=== PATIENT | male | born 1960 | race Caucasian/White ===

== ENCOUNTER 2017-04-24 10:16 | Emergency (ER) | payer BC ==
[2017-04-24 10:45] VITALS: BP 135/85
[2017-04-24] MEDS ORDERED: IBUPROFEN 600 MG TABLET PO ONE (13:23)
[2017-04-24] MEDS ORDERED: IBUPROFEN 600 MG TABLET ONE (13:31)
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
== END 2017-04-24 13:34 | disposition home or self-care (01) ==
LOC: ER 10:16
DX: S56.912A Strain of unspecified muscles, fascia and tendons at forearm level, left arm, initial encounter (principal); X58.XXXA Exposure to other specified factors, initial encounter; Y93.89 Activity, other specified; Y92.488 Other paved roadways as the place of occurrence of the external cause; Y99.8 Other external cause status

== ENCOUNTER 2017-05-19 10:41 | Observation (INO) | payer BC ==
[2017-05-19] MEDS ORDERED: ASPIRIN 81 MG TAB.CHEW ONE (10:48)
[2017-05-19] MEDS ORDERED: ASPIRIN 81 MG TAB.CHEW PO ONE (10:49)
[2017-05-19] MEDS ORDERED: NITROGLYCERIN 0.4 MG/TAB BTL SL ONE ×2 (10:54→11:02)
--- NOTE | 2017-05-19 11:01 | ERNOTE ---
Chest Pain/Cardiac HPI Chief Complaint: Chest Pain Time Seen by Provider: 05/19/17 10:42 Source: patient Exam Limitations: no limitations Immunizations: IMMUNIZATION HX Immunizations Up to Date Yes History of Influenza Vaccine No Hx Pneumococcal Vaccination Yes Allergies/Adverse Reactions: Allergies No Known Allergies Allergy (Verified 05/19/17 12:28) Home Medications: HOME MEDICATIONS Atorvastatin Calcium [Lipitor] 20 mg PO DAILY 05/19/17 [Last Taken 05/18/17 21: 00] Omeprazole 20 mg PO DAILY 05/19/17 [Last Taken 05/18/17 21:00] Narrative: Patient noticed left sided chest pain when he woke up this morning, the pain has been getting worse so he decided to come to the ER to be evaluated. Two nights ago he woke up with pain in the middle of the night, also had pain last night prior to going to bed but none during the night, Date (Duration): 05/19/17 Time (Timing): 08:00 Timing: constant, getting worse Severity/Quality: severe, pressure, sharp Location: left chest Chest Pain Radiation: arms Activities at Onset: none Modifying Factors - Improves: Present: nothing. Absent: exercise Modifying Factors - Worsens: Present: nothing. Absent: nitroglycerin Nitro Today/Relief: 0.4 mg x 1, provided at home Aspirin Treatment Today: no aspirin today Associated Symptoms: Present: dizziness. Absent: denies symptoms, headache, shortness of breath, fever/chills Prior Chest Pain/Cardiac Workup: Reports: prior chest pain. Denies: no prior cardiac workup, heart attack Prior Treatment: Denies: recently seen, currently on antibiotics Review of Systems - Review of Systems Constitutional: Absent: recent illness, fever ENT: Absent: nasal drainage, sore throat Respiratory: Absent: shortness of breath, cough Cardiology: Present: See HPI, chest pain Gastrointestinal/Abdominal: Absent: nausea, vomiting, abdominal pain Genitourinary: Present: no symptoms reported Musculoskeletal: Present: no symptoms reported Skin: Present: no symptoms reported Neurological: Present: headache - slight - Patient's Past Medical History Patient History - Medical: GERD Patient History - Cardiac/Respiratory: Hyperlipidemia Patient History - Cancer: No Hx of Cancer Patient History - Surgical Procedures: Other Patient History - Other: None - Family History Mother Family History - Medical: , No pertinent hx Family History - Cardiac/Respiratory: History Unknown Family History - Cancer: Cervical Father Family History - Medical: History Unknown Family History - Cardiac/Respiratory: History Unknown Family History - Cancer: History Unknown - Social History Living Situations: home Psych History: No pertinent hx Smoking Status: Light tobacco smoker Alcohol Use: none Drug Use: none - Immunizations Immunizations Up to Date: Yes Hx Pneumococcal Vaccination: Yes History of Influenza Vaccine: No Physical Exam - Physical Exam General Appearance: Present: wd/wn, alert, no apparent distress Head Exam: Present: normal inspection Ears, Nose, Throat: Present: normal ENT inspection Respiratory: Present: no respiratory distress, normal breath sounds, no accessory muscle use, chest nontender, lungs clear Cardiovascular/Chest: Present: regular rate, rhythm, no murmur Gastrointestinal/Abdominal: Present: nontender, nondistended, soft Extremity Exam: Present: no edema Neurological Exam: Present: alert, oriented, normal mood/affect Skin Exam: Present: normal color, warm/dry ED Progress - Results and Orders Patient's Lab Results:: I have reviewed the patient's lab results. - Vital Signs Patient's Vital Signs:: I have reviewed the patient's vital signs. Vital Signs: Vital Signs 05/19/17 10:43 Temperature 36.8 C Pulse Rate 60 Respiratory 11 L Rate Blood Pressure 146/83 O2 Sat by Pulse 97 Oximetry - EKG EKG: NSR - sinusbradycardia, nonspecific ST T wave changes, unchanged from 2013 EKG read: Interp. by me - X-Ray X-Ray #1 X-Ray: chest - no acute changes Interpretation: Reviewed by me - Progress/Reassessment Chief Complaint: Chest Pain Progress Note-Subjective: 05/19/17 11:04 pain better after 1st nitro here 05/19/17 11:50 pain resolved. discussed results with patient and family, offered admission for chest pain, patient agreed 05/19/17 11:51 discussed with lino Schuster to admit for chest pain Departure Clinical Impression: Chest pain Qualifiers: Chest pain type: precordial pain Qualified Code(s): R07.2 - Precordial pain - Departure Disposition: [facility] Condition: Good
[2017-05-19 11:11] LABS: Hematocrit 44.2 % (42.0-52.0); Hemoglobin 15.3 gm/dL (13.5-18.0); Mean Cell Volume 79.9 fl (78-100); Mean Corpuscular Hemoglobin 27.7 pg (27-31); Mean Corpuscular Hgb Conc 34.6 g/dl (32-36); Mean Platelet Volume 9.8 fl (6.0-9.5); Neutrophil # 3.6 K/mm3 (1.3-6.0); Neutrophil % 67.8 % (42-75.0); Platelet Count 222 K/mm3 (150-450); Red Blood Count 5.53 M/mm3 (4.7-6.0); Red Cell Distribution Width 12.2 % (11.5-14.0); White Blood Count 5.4 K/mm3 (4.0-10.5)
[2017-05-19 11:15] LABS: Partial Thrombolplastin Time 26.5 Seconds (24-32)
[2017-05-19 11:22] LABS: ALT 39 U/L (19-67); AST 21 U/L (0-48); Albumin * 3.4 gm/dl (3.4-5.0); Alkaline Phosphatase * 111 U/L (50-170); Anion Gap 12.7 mmol/L (6.8-13.8); BUN/Creatinine Ratio 12.5 (9.0-21.6); Bilirubin, Total 0.4 mg/dL (0.0-1.1); Blood Urea Nitrogen 13 mg/dL (6-23); Ca. Corrected For Albumin 8.9 mg/dL (8.4-10.2); Calcium * 8.7 mg/dL (7.9-10.9); Carbon Dioxide 26.2 mmol/L (24-32.6); Chloride 103 mmol/L (97-106); Glucose * 106 mg/dL (70-110); Potassium 3.9 mmol/L (3.4-4.6); Sodium 138 mmol/L (132-142)
[2017-05-19 11:23] LABS: Troponin I Less than 0.017 ng/ml (0.00-0.10)
--- NOTE | 2017-05-19 14:48 | HP ---
Chief Complaint - Chief Complaint Date of Service: 05/19/17 Time of Service: 14:38 Chief Complaint: Chest Pain History of Present Illness: Fernando is a 57 yo male that presented to the [facility] ER with chest pain ( sharp), left arm weakness, and left jaw tingling. He reports he had a little chest pain before going to bed last night but did not think much about it. When he awoke this morning he had sharp left anterior chest wall pain that would not improve. He reportedly took two of his significant others nitro and the pain improved. He has known hyperlipidemia and had a stress test 5 years ago that he reports was normal. He reports currently has a little chest pain but nothing significant. Reports no other symptoms currently. Denies change in diet, activity, or medication. - Patient's Past Medical History Patient History - Medical: GERD Patient History - Cardiac/Respiratory: Hyperlipidemia Patient History - Cancer: No Hx of Cancer Patient History - Surgical Procedures: Other Patient History - Other: None - Family History Mother Family History - Medical: , No pertinent hx Family History - Cardiac/Respiratory: History Unknown Family History - Cancer: Cervical Father Family History - Medical: History Unknown Family History - Cardiac/Respiratory: History Unknown Family History - Cancer: History Unknown - Social History Living Situations: spouse Psych History: No pertinent hx Smoking Status: Never smoker Have you smoked in the past 12 months: No Do you dip or chew tobacco: No Patient requests Smoking Cessation Consult: No Initiate information on Smoking Cessation: No Alcohol Use: none Drug Use: none - Immunizations Immunizations Up to Date: Yes Hx Pneumococcal Vaccination: Yes History of Influenza Vaccine: No Review Of Systems (GEN) - Review of Systems Generalized/Overall Review: Present: Weakness. Absent: Chills, Fever EENTM: Present: No Symptoms Reported Respiratory: Present: No Symptoms Reported Cardiac: Present: Chest Pain. Absent: Edema, Palpitations Abdominal: Present: No Symptoms Reported Genitourinary: Present: No Symptoms Reported Musculoskeletal: Present: No Symptoms Reported Neurological: Present: No Symptoms Reported Skin: Present: No Symptoms Reported Endocrine: Present: No Symptoms Reported Immunizations: IMMUNIZATION HX Immunizations Up to Date Yes History of Influenza Vaccine No Hx Pneumococcal Vaccination Yes Allergies/Adverse Reactions: Allergies Allergy/AdvReac Type Severity Reaction Status Date / Time No Known Allergies Allergy Verified 05/19/17 12:28 Home Medications: HOME MEDICATIONS Atorvastatin Calcium [Lipitor] 20 mg PO DAILY 05/19/17 [Last Taken 05/18/17 21: 00] Omeprazole 20 mg PO DAILY 05/19/17 [Last Taken 05/18/17 21:00] Exam - Exam Vital Signs: Vital Signs - Last Taken Temp 36.2 C L 05/19/17 12:12 Pulse 53 L 05/19/17 12:12 Resp 12 05/19/17 12:12 BP 101/70 05/19/17 12:12 Pulse Ox 96 05/19/17 12:12 Constitutional: Present: Alert, Oriented x3, Cooperative ENT Exam: Present: hearing grossly normal Eye Exam: bilateral eye: normal inspection Respiratory: Present: lungs clear, normal breath sounds Cardiovascular/Chest: Present: regular rate, rhythm, no murmur Peripheral Pulses: dorsalis-pedis (R): 2+, dorsalis-pedis (L): 2+ Abdomen: Present: Normal bowel sounds, soft, nontender, nondistended Extremity: Present: normal inspection Skin Exam: Present: normal color, warm/dry, no cyanosis Lymphatic: Present: no adenopathy Neurologic: Present: normal mood/affect, oriented x 3 Appearance: Present: appropriate appearance, appropriate insight Eye contact: Present: cooperative, good eye contact, normal speech Thoughts: Present: normal thought pattern, no apparent hallucination Diagnostic Studies: Laboratory Results WBC 5.4 K/mm3 (4.0-10.5) 05/19/17 11:00 RBC 5.53 M/mm3 (4.7-6.0) 05/19/17 11:00 Hgb 15.3 gm/dL (13.5-18.0) 05/19/17 11:00 Hct 44.2 % (42.0-52.0) 05/19/17 11:00 MCV 79.9 fl (78-100) 05/19/17 11:00 MCH 27.7 pg (27-31) 05/19/17 11:00 MCHC 34.6 g/dl (32-36) 05/19/17 11:00 RDW 12.2 % (11.5-14.0) 05/19/17 11:00 Plt Count 222 K/mm3 (150-450) 05/19/17 11:00 MPV 9.8 fl (6.0-9.5) H 05/19/17 11:00 Immature Gran % (Auto) 0.40 % (0.001-0.429) 05/19/17 11:00 Immature Gran # (Auto) 0.02 K/mm3 (0.000-0.0310) 05/19/17 11:00 Neutrophils % 67.8 % (42-75.0) 05/19/17 11:00 Lymphocytes % 19.3 % (20-51) L 05/19/17 11:00 Monocytes % 8.8 % (0.0-9) 05/19/17 11:00 Eosinophils % 2.8 % (0.0-3.0) 05/19/17 11:00 Basophils % 0.9 % (0.0-1.0) 05/19/17 11:00 Nucleated RBC % 0.0 k/mm3 (0-1) 05/19/17 11:00 Neutrophils # 3.6 K/mm3 (1.3-6.0) 05/19/17 11:00 Lymphocytes # 1.0 k/mm3 (1.5-3.5) L 05/19/17 11:00 Monocytes # 0.5 k/mm3 (0.0-1.0) 05/19/17 11:00 Eosinophils # 0.2 k/mm3 (0.0-0.7) 05/19/17 11:00 Absolute Basophils 0.1 k/mm3 (0.0-0.1) 05/19/17 11:00 PT 10.0 Seconds (9.0-11.0) 05/19/17 11:00 INR (Anticoag Therapy) 1.00 INR (0.90-1.10) 05/19/17 11:00 PTT (Chery) 26.5 Seconds (24-32) 05/19/17 11:00 Sodium 138 mmol/L (132-142) 05/19/17 11:00 Plasma Sodium 138 mmol/L (130-142) 05/19/17 11:00 Potassium 3.9 mmol/L (3.4-4.6) 05/19/17 11:00 Chloride 103 mmol/L (97-106) 05/19/17 11:00 Carbon Dioxide 26.2 mmol/L (24-32.6) 05/19/17 11:00 Anion Gap 12.7 mmol/L (6.8-13.8) 05/19/17 11:00 BUN 13 mg/dL (6-23) 05/19/17 11:00 Creatinine 1.04 mg/dL (0.4-1.4) 05/19/17 11:00 Est GFR (Non-Af Amer) 79 mL/min (60-130) 05/19/17 11:00 BUN/Creatinine Ratio 12.5 (9.0-21.6) 05/19/17 11:00 Random Glucose 106 mg/dL (70-110) 05/19/17 11:00 Calcium 8.7 mg/dL (7.9-10.9) 05/19/17 11:00 Calcium Adj for Albumin 8.9 mg/dL (8.4-10.2) 05/19/17 11:00 Total Bilirubin 0.4 mg/dL (0.0-1.1) 05/19/17 11:00 AST 21 U/L (0-48) 05/19/17 11:00 ALT 39 U/L (19-67) 05/19/17 11:00 Alkaline Phosphatase 111 U/L (50-170) 05/19/17 11:00 Troponin I Less than 0.017 ng/ml (0.00-0.10) 05/19/17 11:00 Total Protein 7.0 gm/dL (6.2-8.2) 05/19/17 11:00 Albumin 3.4 gm/dl (3.4-5.0) 05/19/17 11:00 Assessment/Plan - Narrative Narrative: Fernando is a 57 yo male with chest pain, left arm pain, and left neck pain. Initial evaluation in the ER was negative for acute LA. Troponin negative , no acute changes on EKG, and no acute changes on chest xray. Symptoms are reportedly improved by nitro. Will admit to observation with serial troponin, monitoring on telemetry, and repeat EKG. Unclear etiology of symptoms. Will evaluate for acute LA. Symptoms may be musculoskeletal with nerve pinch vs GERD. Could consider outpatient stress test. - Assessment/Plan (1) Chest pain Problem: Acute Qualifiers: Chest pain type: precordial pain Qualified Code(s): R07.2 - Precordial pain
[2017-05-19] MEDS ORDERED: MAG HYDROX/ALUMINUM HYD/SIMETH 30 ML UDC PO ONE (15:42)
[2017-05-19] MEDS ORDERED: BELLADONNA ALKALOIDS/PHENOBARB 60 ML BTL PO ONE (15:42)
[2017-05-19] MEDS ORDERED: LIDOCAINE HCL 20 ML UDC PO ONE ×2 (15:42)
[2017-05-19 16:02] VITALS: BP 119/78
[2017-05-19] MEDS ORDERED: ACETAMINOPHEN 325 MG TABLET PO ONE (16:46)
--- NOTE | 2017-05-19 17:47 | DS ---
(1) Chest pain Diagnosis(s): Eran is a 57 yo male admitted for chest pain. Initial work up was negative for acute HI. He was admitted to observation with telemetry, serial troponins, and EKG. There was no evidence of cardiac etiology for his chest pain. Unclear etiology for chest pain. Could be stress vs musculoskeletal vs GI. Having been ruled out for acute HI he was discharged to home. To complete evaluation for cardiac work up he will be set up with a nuclear treadmill stress test. This will be scheduled as an outpatient. Problem: Acute Qualifiers: Chest pain type: intercostal pain Qualified Code(s): R07.82 - Intercostal pain Procedures Performed: none Discharge Disposition: Home self care Disposition: Home self-care Condition: Good Discharge Activity: Activity as tolerated Discharge Diet: Low fat/chol Referrals: [facility] [Non Staff Physicians] - One Week Problem Oriented Discharge Instructions to Patient/Family: Chest Pain Observation Additional Patient Instructions (free text): Chest pain does not appear heart related. Suspect a pinched nerve from tight muscles caused the symptoms. Recommend heat, tylenol, or ibuprofen. Complete Home Medications List: Complete Home Medication List: RX: Atorvastatin Calcium [Lipitor] 20 mg PO DAILY 05/19/17 RX: Omeprazole 20 mg PO DAILY 05/19/17 Amb Orders for Discharge: NUC Treadmill Stress Complete Time Frame: 1 Week, Facility: [facility], Location: Radiology
== END 2017-05-19 19:07 | disposition home or self-care (01) ==
LOC: ER 10:41 → MS 11:58
PROVIDERS: ADMIT Family Medicine; ATTEND Family Medicine
DX: R07.2 Precordial pain (principal); K21.9 Gastro-esophageal reflux disease without esophagitis; E78.5 Hyperlipidemia, unspecified; F17.210 Nicotine dependence, cigarettes, uncomplicated
CPT/HCPCS: 36415; 71020; 80053; 84484; 85025; 85610; 85730; 93005; 99284; G0378